=== PATIENT | male | born 1995 | race Caucasian/White ===

== ENCOUNTER 2022-12-21 07:32 | Emergency (ER) | payer SELFPAY ==
[2022-12-21 07:40] VITALS: BP 110/85; PULSE 75; RESP 18; TEMP 36.8; O2SAT 97; BMI 33.4
--- NOTE | 2022-12-21 07:49 | PC.NURSE ---
PT. C/O ITCHY BUMPY SKIN TO BUE, BLE, AND TORSO S/P CAMPING TRIP. PT STATES BUMPS ARE NOT PAINFUL.. PT STATES SLEPT IN A CABIN BUT DID SWIM IN A POND
--- NOTE | 2022-12-21 07:57 | ED.SKABFB1 ---
HPI - Skin/Abscess/Foreign Bdy General Chief complaint: Skin/Abscess/Foreign Body Stated complaint: bug bites all over Time Seen by Provider: 12/21/22 07:57 Source: patient Mode of arrival: walk-in Limitations: no limitations History of Present Illness HPI narrative: Patient presents to the emergency department complaining of rash. Patient states he went camping south [facility] last week and he developed bunch of bumps to his leg, abdomen, and arms. Patient states these are itchy. He has been using calamine lotion. He denies any fever, chills, sore throat, cough, chest, shortness of breath. Denies any constitutional symptoms. Related to the dorsal [place] and was told this was a viral infection. The patient has been using the calamine lotion. She has not taking any antipruritic medication. He denies developing any more lesions but they haven't gone away. He states that he tried a very hot bath and that made it worse. Related Data Previous Rx's Medication Instructions Recorded diphenhydramine HCl 25 mg capsule 25 mg PO Q8H PRN itching #20 caps 12/21/22 (Benadryl) Allergies Allergy/AdvReac Type Severity Reaction Status Date / Time codeine Allergy Intermediate fast heart Verified 12/21/22 07:39 rate Review of Systems ROS Status of ROS 10 or more systems reviewed and unremarkable except as noted in history and below Exam Narrative Exam Narrative: Nurses notes and vital signs reviewed and patient is not hypoxic. General: Nontoxic, Well-appearing and in no apparent distress. Skin: Warm, dry, no pallor noted. Diffuse papular rashes to the lower extremities below the knees and in the abdomen worse on the right side and chest and in the forearms with closing is not present. There is no signs of bacterial infection. These are consistent with insect bites. Head: Normocephalic, atraumatic. Neck: Supple, non-tender. Eye: Pupils are equal, round and EOMI. No scleral icterus. Ears, Nose, Mouth, and Throat: TM clear, no posterior oropharynx erythema or nasal mucosal hypertrophy, uvula is mid-line Oral mucosa is moist Cardiovascular: Regular Rate and Rhythm without murmur, gallop or rub. Respiratory: No accessory muscle use or respiratory distress. Lungs are clear to auscultation, no wheezing, rales or rhonchi Chest Wall: no tenderness Back: No midline thoracic or lumbar vertebral tenderness. No CVA tenderness Musculoskeletal: normal ROM, no calf or popliteal tenderness, no lower extremity edema/swelling GI: Abdomen is soft, non-distended. Normal bowel sounds. No masses appreciated. No tenderness to palpation. No rebound, guarding, or rigidity noted. Neurological: A&O x4. No cranial nerve dysfunction observed. No truncal ataxia. Moves all extremities. Sensation intact. Psychiatric: Cooperative and interactive. Normal mood and affect. Constitutional Vital Signs - 24 hr 12/21/22 07:40 Temperature 98.2 F Pulse Rate [Monitor] 75 Respiratory Rate 18 Blood Pressure [Left Arm] 110/85 H Pulse Oximetry 97 Oxygen Delivery Method Room Air Course Vital Signs Vital signs: Vital Signs Temperature 98.2 F 12/21/22 07:40 Pulse Rate 75 12/21/22 07:40 Respiratory Rate 18 12/21/22 07:40 Blood Pressure 110/85 H 12/21/22 07:40 Pulse Oximetry 97 12/21/22 07:40 Oxygen Delivery Method Room Air 12/21/22 07:40 Temperature 98.2 F 12/21/22 07:40 Pulse Rate 75 12/21/22 07:40 Respiratory Rate 18 12/21/22 07:40 Blood Pressure 110/85 H 12/21/22 07:40 Pulse Oximetry 97 12/21/22 07:40 Oxygen Delivery Method Room Air 12/21/22 07:40 MDM - Skin/Abscess/Foreign Bdy MDM Narrative Medical decision making narrative: History of physical consistent with insect bites. Discussed the patient to take Benadryl continue to use calamine lotion if it helps. He is nontoxic, nontoxic and stable for outpatient follow-up and treatment. At this time the patient is without objective evidence of an acute process requiring hospitalization or inpatient management. No additional indication for emergent studies at this time. I answered all questions. Discussed discharge instructions including standard anticipatory guidance and what should prompt a return to the emergency department, including if they get worse are not getting better or develops any new or concerning symptoms. I've given them specific time frame in which to follow-up, and who to follow-up with. The patient demonstrates understanding. Patient is nontoxic and stable for discharge with outpatient follow-up. This note was created with the assistance of a speech recognition program. Although the intention is to generate documents that actually reflects the content of the visit, no guarantees can be provided that every mistake has been identified and corrected by editing. Differential Diagnosis Differential diagnosis: Likely abscess of skin or subcutaneous tissue, viral exanthem, dermatophytosis, herpes zoster, cellulitis, eczema, insect bites, impetigo and contact dermatitis Discharge Plan Discharge Chief Complaint: Skin/Abscess/Foreign Body Clinical Impression: Insect bite Patient Disposition: Home, Self-Care Time of Disposition Decision: 08:05 Condition: Good Mode of Transportation: Private Vehicle Prescriptions / Home Meds: New diphenhydramine HCl [Benadryl] 25 mg capsule 25 mg PO Q8H PRN (Reason: itching) Qty: 20 0RF Instructions: Insect Bite or Sting (ED) Stand Alone Forms: Portal Instructions Referrals: Physician,Non-Staff, MD [Primary Care Provider] - 1 week
== END 2022-12-21 08:16 | disposition home or self-care (01) ==
PROVIDERS: Emergency Provider Emergency Medicine
DX: S80.862A Insect bite (nonvenomous), left lower leg, initial encounter (principal); S80.861A Insect bite (nonvenomous), right lower leg, initial encounter; S50.862A Insect bite (nonvenomous) of left forearm, initial encounter; S50.861A Insect bite (nonvenomous) of right forearm, initial encounter; S20.363A Insect bite (nonvenomous) of bilateral front wall of thorax, initial encounter; S30.861A Insect bite (nonvenomous) of abdominal wall, initial encounter; W57.XXXA Bitten or stung by nonvenomous insect and other nonvenomous arthropods, initial encounter
CPT/HCPCS: 99281

== ENCOUNTER 2025-06-28 19:09 | Emergency (ER) | payer BC, SELFPAY ==
--- OUTSIDE RECORDS SUMMARY | 2025-06-28 18:18 | XMS_ITS | Encounter Summary ---
Author Organization [facility] [employer] [facility] tem Address [facility] [id number] [address] [place] [address] Care Team Providers Care Funeral Director And Embalmer Name Role Phone No Pcp, No Pcp Primary Care Provider Unavailabl e Reason for Visit * ReasonCommentsCold Like SymptomsPt states cold like symptoms that began when he woke up this morning. Denies N/V/D. C/o headache, fatigue, congestion. Encounter Details DateTypeDepartmentCare Team (Latest Contact Info)Ljakglzheyt91/17/2025 6:18 PM EST - 06/28/2025 7:32 PM [facility] - Emergency [address] [place] [id number] Discharge Disposition: Left Without Treatment Social History Tobacco UseTypesPacks/DayYears UsedDateSmoking Tobacco: NeverSmokeless Tobacco: NeverAlcohol UseStandard Drinks/WeekCommentsNo0 (1 standard drink = 0.6 oz pure alcohol)ChildcareAnswerDate KhytzubeUvmnkppaqYtoahne16/10/2019EmploymentAnswer Date WygkdeoiAviaknarqtLmqbtbo01/10/2019Hunger ScreeningAnswerDate Recorded Within the past 12 months we worried whether our food would run out before we got money to buy more.Never True06/28/2025Within the past 12 months the food we bought just didn't last and we didn't have money to get more.Never True 06/28/2025Purpose - LifeAnswerDate RecordedPurpose and direction in lifeUnknown 08/22/2020ex and Gender InformationValueDate RecordedSex Assigned at BirthNot on fileLegal OurPots8602/13/2015 2:55 PM EDTGender IdentityNot on fileSexual OrientationNot on filedocumented as of this encounter Last Filed Vital Signs Vital SignReadingTime TakenCommentsBlood Pkpqdgln806/8306/28/2025 6:34 PM EST Cewtj384006/28/2025 6:34 PM KTNLyiobtyjuax62.9 ??C (98.4 ??F)06/28/2025 6:34 PM ESTRespiratory Tbck735708/29/2024 6:34 PM ESTOxygen Ztdgpptbyn21%06/28/2025 6:34 PM ESTInhaled Oxygen Concentration--Kjuvzq033 kg (236 lb)06/28/2025 6:34 PM EST Nkzftc853.1 cm (5' 5 )06/28/2025 6:34 PM ESTBody Mass Index39.27108/29/2024 6:34 PM ESTdocumented in this encounter Functional Status * ED Hunger ScreeningQuestionAnswerDate of AssessmentAuthorWithin the past 12 months the food we bought just didn't last and we didn't have money to get more.Never True06/28/2025 6:36 PM Benny Schuster Jr., RNWithin the past 12 months we worried whether our food would run out before we got money to buy more.Never True06/28/2025 6:36 PM Benny Schuster Jr., RN * BEE (kcal)AnswerDate of OtbziljuceDyfdzo997190/17/2025 6:34 PM Benny Schuster Jr., RN * Pain AssessmentQuestionAnswerDate of AssessmentAuthorPain AssessmentNo/denies pain06/28/2025 6:34 PM Benny Schuster Jr., RN * [place] Coma ScaleQuestionAnswerDate of AssessmentAuthorEye Uhbtksi847/17/2025 6:35 PM Benny Schuster Jr. RNBest Motor Igtpqbzv615/17/2025 6:35 PM EST Benny Camara Jr., RNBest Verbal Eixxtrbi442/17/2025 6:35 PM Benny Schuster Jr., RNGlasgow Coma Scale Ocbcr7843/17/2025 6:35 PM Benny Schuster Jr., RN * Patient ObservationQuestionAnswerDate of BhwdkjifrcAncruuTnqcgq2163/17/2025 6:34 PM Bneny Schuster Jr., RNWeight377612 6:34 PM Benny Schuster Jr., RN * BSA (Calculated - sq m)AnswerDate of AssessmentAuthor2.22108/29/2024 6:34 PM Benny Schuster Jr., RN * BMI (Calculated)AnswerDate of HzxxhqohaaNoqzqs16.312 6:34 PM Benny Beebe Jr., RN * Height and WeightQuestionAnswerDate of AssessmentAutCincinnati Shriners Hospitalt MethodStated 06/28/2025 6:34 PM Benny Schuster Jr., RN * Abuse Indicator ScreeningQuestionAnswerDate of AssessmentAuthorSafe in [facility] 06/28/2025 6:36 PM Benny Schuster Jr., RNDo you feel safe in your relationship(s)?Yes06/28/2025 6:36 PM Benny Schuster Jr. RNAre you in immediate danger?No06/28/2025 6:36 PM Benny Schuster Jr., RN * Harm Risk AssessmentQuestionAnswerDate of AssessmentAuthorAre you having thoughts of homicide or causing harm to others?No06/28/2025 6:35 PM Benny Schuster Jr., RN * Blood HistoryQuestionAnswerDate of AssessmentAuthorHave you had a blood transfusion?No06/28/2025 6:36 PM Benny Schuster Jr., RNWould you accept a blood transfusion in a life-threatening situation?Yes06/28/2025 6:36 PM Benny Beebe Jr., RN * Vital SignsQuestionAnswerDate of EhrizupsycOuykmbIP269/8312 6:34 PM Benny Schuster Jr. LFYfjq99.412 6:34 PM Benny Schuster Jr., RNTemp uepOcul0606/28/2025 6:34 PM Benny Schuster Jr., FGQrtgq6192/17/2025 6:34 PM Benny Schuster Jr., OLOyql0259/17/2025 6:34 PM Benny Schuster Jr., JUNsR07278/17/2025 6:34 PM Benny Schuster Jr., RNBP LocationLeft arm 06/28/2025 6:34 PM Benny Schuster Jr., RNBP BjnnncZutwdushi89/17/2025 6:34 PM Benny Schuster Jr., RNPatient QgsqoxzgYarjhea44/17/2025 6:34 PM Benny Beebe Jr., WINNIE * Oxygen TherapyQuestionAnswerDate of AssessmentAuthorO2 DeviceNone (Room air) 06/28/2025 6:34 PM Benny Schuster Jr., RN * AirwayQuestionAnswerDate of AssessmentAuthorAirway (WDL)WDL108/29/2024 6:35 PM Benny Schuster Jr. RN * BreathingQuestionAnswerDate of AssessmentAuthorBreathing (WDL)WD08/29/2024 6:35 PM Benny Schuster Jr., RN * CirculationQuestionAnswerDate of AssessmentAuthorCirculation (WDL)WDL 06/28/2025 6:35 PM Benny Schuster Jr., RN * DisabilityQuestionAnswerDate of AssessmentAuthorDisability (WDL)WDL108/29/2024 6:35 PM Benny Schuster Jr., RN * Weight in (lb) to have BMI = 25AnswerDate of VdpzbnioblHjrfiu776.9108/29/2024 6:34 PM Benny Schuster Jr., RN * [place] Suicide BehaviorQuestionAnswerDate of AssessmentAuthor6. Have you ever done anything, started to do anything, or prepared to do anything to end your life?No06/28/2025 6:35 PM Benny Schuster Jr., RN * Suicidal Ideation (Last Month)QuestionAnswerDate of AssessmentAuthor1. In the last month have you wished you were or wished you could go to sleep and not wake up?No06/28/2025 6:35 PM Benny Schuster Jr., RN2. In the last month have you actually had any thoughts of killing yourself?No06/28/2025 6:35 PM Benny Schuster Jr., RNAble to assess?Yes06/28/2025 6:35 PM Benny Schuster Jr., RN * Vitals TimerQuestionAnswerDate of AssessmentAuthorRestwalkersville Vitals TimerYes 06/28/2025 6:34 PM Benny Schuster Jr., RN * TB ScreeningQuestionAnswerDate of AssessmentAuthorPatient has prolonged cough? No06/28/2025 6:36 PM Benny Schuster Jr. RNPatient has bloody cough?No 06/28/2025 6:36 PM Benny Schuster Jr. RNPatient has fever?No06/28/2025 6:36 PM Benny Schuster Jr., RNPatient has night sweats?No06/28/2025 6:36 PM Benny Schuster Jr., RNPatient has weight loss?No06/28/2025 6:36 PM Benny Beebe Jr. RNPatient has positive PPD?Kzifraz2506/28/2025 6:36 PM Benny Beebe Jr., RN * [place] Suicide Risk LevelAnswerDate of AssessmentAuthorNot at Suicide Risk 06/28/2025 6:35 PM Benny Schuster Jr., RN * BEE (kcal)AnswerDate of KvbmzrgsrlYhxvpd906974/17/2025 6:34 PM Benny Schuster Jr., RN * Patient ObservationQuestionAnswerDate of OnmyowigxmDyfsatHbpvbh4996/17/2025 6:34 PM Benny Schuster Jr., RNWeight377606/28/2025 6:34 PM Benny Schuster Jr., RN * BSA (Calculated - sq m)AnswerDate of AssessmentAuthor2.22108/29/2024 6:34 PM Benny Schuster Jr., RN * BMI (Calculated)AnswerDate of RsxehnhsnlNdvcgs32.312 6:34 PM Benny Beebe Jr., RN * Height and WeightQuestionAnswerDate of AssessmentAuthorHeight MethodStated 06/28/2025 6:34 PM Benny Schuster Jr. RN * Vital SignsQuestionAnswerDate of VuxbbvkbptFmplwwGW322/8306/28/2025 6:34 PM Benny Scuhster Jr., YPOkyk87.412 6:34 PM Benny Schuster Jr., RNTemp hwjBcqb4206/28/2025 6:34 PM Benny Schuster Jr., SRKrpfr1553/17/2025 6:34 PM Benny Schuster Jr., JKVpmz9187/17/2025 6:34 PM Benny Schuster Jr., XPYkO08422/17/2025 6:34 PM Benny Schuster Jr., RNBP LocationLeft arm 06/28/2025 6:34 PM Benny Schuster Jr., RNBP RxrfelYbisqoxgx96/17/2025 6:34 PM Benny Schuster Jr., RNPatient YlfnpzfrKaavrsj60/17/2025 6:34 PM Benny Beebe Jr., RN * Weight in (lb) to have BMI = 25AnswerDate of MrrirdzeqoJhzhds838.9108/29/2024 6:34 PM Benny Schuster Jr. RN documented as of this encounter Mental Status * Pain AssessmentQuestionAnswerEntry DateAuthorPain AssessmentNo/denies pain 06/28/2025 6:34 PM Benny Schuster Jr., RN * [place] Coma ScaleQuestionAnswerEntry DateAuthorEye Cyoedlt013/17/2025 6:35 PM Benny Schuster Jr., RNBest Motor Gnjzgbuc402/17/2025 6:35 PM ESTLowery, Benny Jr., RNBest Verbal Emdwmmkq118/17/2025 6:35 PM Benny Schuster Jr., RNGlasgow Coma Scale Kkhtp9923/17/2025 6:35 PM Benny Schuster Jr., RN * Vital SignsQuestionAnswerEntry UbfyDmcysfGU272/8306/28/2025 6:34 PM Benny Schuster Jr., TRNwum57.412 6:34 PM ESTBenny Camara Jr., RNTemp src Oral06/28/2025 6:34 PM ESTBenny Camara Jr., TVWwejo8593/17/2025 6:34 PM Benny Beebe Jr., ODHeva0853/17/2025 6:34 PM ESTBenny Camara Jr., RNSpO2 9406/28/2025 6:34 PM ESTBenny Camara Jr., RNBP LocationLeft arm06/28/2025 6:34 PM Benny Schuster Jr., RNBP PdwlraJgzeaeaig57/17/2025 6:34 PM Benny Beebe Jr., RNPatient VifkemfxHiesdcd75/17/2025 6:34 PM Benny Schuster Jr., RN * Oxygen TherapyQuestionAnswerEntry DateAuthorO2 DeviceNone (Room air)06/28/2025 6:34 PM Benny Schuster Jr., RN documented in this encounter Medications at Time of Discharge MedicationSigDispense QuantityRefillsLast FilledStart DateEnd Date amLODIPine (NORVASC) 5 mg tablet Take 1 tablet (5 mg total) by mouth before bedtime for 180 days. 90 tablet 503/ levocetirizine (XYZAL) 5 mg tablet Take 1 tablet (5 mg total) by mouth nightly as needed for allergies. 30 tablet 12/17/2022 methylPREDNISolone (MEDROL, SHAHBAZ,) 4 mg tablet follow package directions 21 tablet 3documented as of this encounter Plan of Treatment NameTypePriorityAssociated DiagnosesOrder ScheduleSARS/FLU A+B/RSV by NAAT/Molecular (M4RT Collection Tube)MicrobiologySTATSTAT for 1 Occurrences starting 06/28/2025 until 06/28/2025documented as of this encounter Visit Diagnoses Not on filedocumented in this encounter Additional Health Concerns InfectionOnset DateLast IndicatedResolved TimeRespiratory Rule-Out06/28/2025 06/28/2025documented as of this encounter Care Teams Team MemberRelationshipSpecialtyStart DateEnd Date No Pcp, [place] [id number] [facility]CP [facility] Jbrpisqd49/22/23documented as of this encounter
[2025-06-28 19:27] VITALS: BP 138/91; PULSE 95; TEMP 36.9; O2SAT 96; BMI 39.3
--- NOTE | 2025-06-28 20:11 | ED_ITS ---
HPI - URI/Sore Throat General Chief Complaint: Upper Respiratory Infection Stated Complaint: Flu-like symptoms Time Seen by Provider: 06/28/25 20:06 Source: patient History of Present Illness HPI Narrative: This 30-year-old male with no significant medical history besides a heart murmur presents for evaluation of sore throat, runny nose, headache and bodyaches that started last night. He has been using cough drops but otherwise has not taken any medications. He is not having any chest pain or shortness of breath. He denies any abdominal pain nausea vomiting or diarrhea. He denies any sick contacts. Related Data Previous Rx's ?Medication ?Instructions ?Recorded diphenhydramine HCl 25 mg capsule 25 mg PO Q8H PRN itc nita #20 caps 12/21/22 (Benadryl) Allergies Allergy/AdvReac Type Severity Reaction Status Date / Time codeine Allergy Intermediate fast heart Verified 12/21/22 07:39 rate Review of Systems ROS Status of ROS 10 or more systems reviewed and unremark able except as noted in history and below PFSH PFSH Social History Little interest or pleasure in doing things: not at all Feeling down, depressed, or hopeless: not at all Exam Narrative Exam Narrative: Vital signs and Nursing Notes reviewed: Patient is afebrile with a normal pulse, normal blood pressure, he is not hypoxic with pulse ox of 96% on room air General: Awake, alert, oriented, no acute distress, lying comfortably on the stretcher HEENT: Normocephalic atraumatic, mucous membranes are moist and pink, eyes are clear, normal conjunctiva, vision is grossly intact Neck: Supple, no meningeal signs, no anterior or posterior cervical lymphadenopathy Chest: Lungs are clear to auscultation with good air entry, there is no wheezing rhonchi or rales appreciated no accessory muscle use, patient is speaking in complete sentences-no chest wall tenderness to palpation CVS: Regular rate and rhythm S1-S2, grade 4-6 systolic ejection murmur with no rubs or gallops, pulses are brisk and equal bilaterally ABD: Soft, nondistended, nontender, no rebound guarding or rigidity, bowel sounds are normal, no pulsatile masses appreciated Extremities: Moving all extremities, no lower extremity tenderness or swelling noted, negative Homans' sign, pulses are brisk and equal bilaterally Skin: Normal in appearance without rash,pallor, petechiae or purpura Neuro: No focal deficits Constitutional Vital Signs, click to edit/add: Last Vital Signs Temp 98.5 F 06/28/25 19:27 Pulse 95 H 06/28/25 19:27 Resp 18 06/28/25 19:27 BP 138/91 06/28/25 19:27 Pulse Ox 96 06/28/25 19:27 O2 Del Method Room Air 06/28/25 19:27 Course Vital Signs Vital signs: Vital Signs Temperature 98.5 F 06/28/25 19:27 Pulse Rate 95 H 06/28/25 19:27 Respiratory Rate 18 06/28/25 19:27 Blood Pressure 138/91 06/28/25 19:27 Pulse Oximetry 96 06/28/25 19:27 Oxygen Delivery Method Room Air 06/28/25 19:27 Temperature 98.5 F 06/28/25 19:27 Pulse Rate 95 H 06/28/25 19:27 Respiratory Rate 18 06/28/25 19:27 Blood Pressure 138/91 06/28/25 19:27 Pulse Oximetry 96 06/28/25 19:27 Oxygen Delivery Method Room Air 06/28/25 19:27 MDM - URI/Sore Throat MDM Narrative Medical decision making narrative: This 70-year-old male presents for evaluation of 24 hours of a sore throat, nasal congestion, dry cough and bodyaches as well as chills. His physical exam is benign with the exception of a heart murmur which he was aware that he had. Vital signs are stable. He had only been taking cough drops for his symptoms. He was medicated emergency department with Tylenol and ibuprofen. He is negative for COVID-19 and influenza. A strep test was attempted but he bit the swab in half and it was not reattempted. He is hemodynamically stable for discharge. He was discharged home with a prescription for ibuprofen and a note for work for the next 2 days. He was encouraged to drink plenty of fluids, isolate as he may have COVID-19 despite the negative test and follow-up closely with his family physician. Lab Data Attestation: I reviewed the patient's lab results. Labs: Lab Results 06/28/25 Range/Units 19:33 Influenza Type A Ag Negative Influenza Type B Ag Negative SARS-CoV-2 Ag (CV2AG) Negative (NEGATIVE) Discharge Plan Discharge Chief Complaint: Upper Respiratory Infection Clinical Impression: Upper respiratory infection, viral Patient Disposition: Home, Self-Care Time of Disposition Decision: 20:24 Condition: Good Prescriptions / Home Meds: No Action diphenhydramine HCl [Benadryl] 25 mg capsule 25 mg PO Q8H PRN (Reason: itching) Qty: 20 0RF Print Language: Malagasy Instructions: Upper Respiratory Infection (ED) Referrals: Physician,Non-Staff, MD [Primary Care Provider] - 1 week
[2025-06-28 20:13] LABS: SARS-CoV-2 Ag NEGATIVE (NEGATIVE)
[2025-06-28] MEDS: IBUPROFEN 600 MG TABLET PO (20:25)
[2025-06-28] MEDS: ACETAMINOPHEN 325 MG TABLET 650 MG PO (20:25)
--- OUTSIDE RECORDS SUMMARY | 2025-06-28 20:27 | XMS_ITS | Encounter Summary ---
Author Organization [employer] s tem Address [facility] [id number] [address] [place] [address] Care Team Providers Care Timber Surveyor Name Role Phone No Pcp, No Pcp Primary Care Provider Unavailabl e Encounter Details DateTypeDepartmentCare Team (Latest Contact Info)Ozhxucvihng09/17/2025Travel Social History Tobacco UseTypesPacks/DayYears UsedDateSmoking Tobacco: NeverSmokeless Tobacco: NeverAlcohol UseStandard Drinks/WeekCommentsNo0 (1 standard drink = 0.6 oz pure alcohol)ChildcareAnswerDate LzbqjdrcKcxjbkdznReiajxq53/10/2019EmploymentAnswer Date ExuqxicpLoxoerwfezIjbjwjv74/10/2019Hunger ScreeningAnswerDate Recorded Within the past 12 months we worried whether our food would run out before we got money to buy more.Never True06/28/2025Within the past 12 months the food we bought just didn't last and we didn't have money to get more.Never True 06/28/2025Purpose - LifeAnswerDate RecordedPurpose and direction in lifeUnknown 08/22/2020ex and Gender InformationValueDate RecordedSex Assigned at BirthNot on fileLegal TytEhvp0802/13/2015 2:55 PM EDTGender IdentityNot on fileSexual OrientationNot on filedocumented as of this encounter Plan of Treatment Not on file documented as of this encounter Visit Diagnoses Not on filedocumented in this encounter Additional Health Concerns InfectionOnset DateLast IndicatedResolved TimeRespiratory Rule-Out06/28/2025 5documented as of this encounter Care Teams Team MemberRelationshipSpecialtyStart DateEnd Date No Pcp, [place] [id number] PCP - GeneralFanhly Gpdpvbmg98/22/23documented as of this encounter
--- OUTSIDE RECORDS SUMMARY | 2025-06-28 20:28 | XMS_ITS | Encounter Summary ---
Author Organization [employer] Sys tem Address [id number] [address] [place] [address] Care Team Providers Care Direct Service Worker Name Role Phone No Pcp, No Pcp Primary Care Provider Unavailabl e Encounter Details DateTypeDepartmentCare Team (Latest Contact Info)Ufnyyfxrrdl77/05/2025Telephone [facility] [address] [facility] [address] [place] [address] [phone] Dayanna Meyer RN Social History Tobacco UseTypesPacks/DayYears UsedDateSmoking Tobacco: NeverSmokeless Tobacco: NeverAlcohol UseStandard Drinks/WeekCommentsNo0 (1 standard drink = 0.6 oz pure alcohol)ChildcareAnswerDate ZilinmgiGcvefliagIgsuett46/10/2019EmploymentAnswer Date ZxuydksiZozavxpxmdZijjrwl75/10/2019Hunger ScreeningAnswerDate Recorded Within the past 12 months we worried whether our food would run out before we got money to buy more.Never True07/03/2023Within the past 12 months the food we bought just didn't last and we didn't have money to get more.Never True 3Purpose - LifeAnswerDate RecordedPurpose and direction in lifeUnknown 1Sex and Gender InformationValueDate RecordedSex Assigned at BirthNot on fileLegal VfwJvcr9002/13/2015 2:55 PM EDTGender IdentityNot on fileSexual OrientationNot on filedocumented as of this encounter Miscellaneous Notes * Telephone Encounter - Dayanna Meyer RN - 06/16/2025 1:33 PM EST Images from the original note were not included. Attempted to call patient and patient's twice to relay message below. Awaiting call back at this time. Rosalba Rivera MD [facility] Clinical Staff I called a few times to discuss her 's MRI results because of the concern that he might needsurgery but there was an answer and then the phone got disconnected. Please let her know that at this time I am working on getting all of his MRIs transferred to our system for further review and discussions. In the interim I would like her and her to consider where they would like to have surgery whether at [facility] at [facility]. I am leaning more towards [facility] out Clinic since he is now an adult Congenital patient we can certainly discuss this further when I get back from vacation. * Telephone Encounter - Dayanna Meyer RN - 06/16/2025 1:33 PM EST Spoke with Chano's . She would like more details regarding upcoming surgery. [facility] would [facility] to [facility]. Please advise. * Telephone Encounter - Rosalba Rivera MD - 06/16/2025 1:33 PM EST Noted. Imaging has been sent and they will be reviewing presenting him at the conference. * Telephone Encounter - Dayanna Meyer RN - 06/16/2025 1:33 PM EST Chano is inquiring if this is open heart surgery vs cath and what surgery plans to expect? Patient wondering if surgery is in regards to his valve? Patient and family needs to plan for work, income, and coverage for children. Please advise. * Telephone Encounter - Rosalba Rivera MD - 06/16/2025 1:33 PM EST I called twice to day unfortunately had to leave a message. This will be open heart surgery. They will be replacing the conduit which the last time he has a conduit placed was I think age 75 years old. It is time for it to be replaced. My understanding and correct me for my wrong is that he had his 1st surgery at [facility] so we can certainly do it at [facility] and unless [facility] is closer to them. Since he did have the MRIs there I have asks [facility] to look at his images. I have also sent the MRI to [facility]. This will be an open heart surgery Cardiothoracic surgery. I feel that his do not have would probably be about 1-2 weeks. He will be in hospital for probably a week in total. I have not yet heard from either teams with respect to then presenting it is a surgical team. At [facility] the surgeon will be and at [facility] the surgeon will be Dr. Fisher Please let her know that either is completely fine it really is dependent upon them. And I think he had his 1st done surgery done at [facility] with Dr. Fisher . * Telephone Encounter - Dayanna Meyer RN - 06/16/2025 1:33 PM EST Spoke with patient's and relayed message above. Her and Chano will discuss which location is best for them after hearing back from both surgical teams and the suggested surgery plans. They are very anxious about the surgery and Chano having to miss work. documented in this encounter Plan of Treatment Not on file documented as of this encounter Visit Diagnoses Not on filedocumented in this encounter Additional Health Concerns InfectionOnset DateLast IndicatedResolved TimeRespiratory Rule-Out06/28/2025 06/28/2025documented as of this encounter Care Teams Team MemberRelationshipSpecialtyStart DateEnd Date No Pcp, [place] [address] PCP - GeneralFanjly Ffrwhvhd24/22/23documented as of this encounter
--- OUTSIDE RECORDS SUMMARY | 2025-06-28 20:28 | XMS_ITS | Clinical Summary ---
Author Organization [employer] Sys tem Address [id number] [address] [place] [address] Care Team Providers Care Ed Case Manager Name Role Phone No Pcp, No Pcp Primary Care Provider Unavailabl e Allergies Active AllergyReactionsCriticalityNoted KbexQiwzvnseWienxos41/14/2017 Medications MedicationSigDispense QuantityRefillsLast FilledStart DateEnd DateStatus methylPREDNISolone (MEDROL, SHAHBAZ,) 4 mg tablet follow package directions 21 tablet 12/17/2022ctive Additional Information Patient not taking.Reported on 07/03/2023 levocetirizine (XYZAL) 5 mg tablet Take 1 tablet (5 mg total) by mouth nightly as needed for allergies. 30 tablet 12/17/2022ctive Additional Information Patient not taking.Reported on 07/03/2023 amLODIPine (NORVASC) 5 mg tablet Take 1 tablet (5 mg total) by mouth before bedtime for 180 days. 90 tablet ctive Encounters DateTypeDepartmentCare PybjRqtcpznujai02/17/2025 6:18 PM EST - 06/28/2025 7:32 PM ESTEmergenkofi [facility] [address] [place] [address] Discharge Disposition: Left Without Mfcwaitrw87/17/5411Emlfhg88/05/2025Telephone [facility] [address] [place] [address] [phone] Dayanna Meyer RN 05/17/2025Telephone [facility] [address] [place] [address] Dayanna Meyer RN 04/19/2025 1:20 PM EDTAncillary Procedure [facility] [address] [place] [address] Pain03/30/2025 8:00 AM EDTAncillary Procedure [facility] [address] [place] [address] H/O truncus arteriosus repair; Palpitations; Chest pain, unspecified type03/30/2025Telephone [facility] [address] [place] [address] Dayanna Meyer RN 03/29/2025Orders Only [facility] [address] [place] [address] Rosalba Rivera MD H/O truncus arteriosus repair (Primary Dx); Palpitations; Chest pain, unspecified typefrom Last 3 Months Social History Tobacco UseTypesPacks/DayYears UsedDateSmoking Tobacco: NeverSmokeless Tobacco: NeverAlcohol UseStandard Drinks/WeekCommentsNo0 (1 standard drink = 0.6 oz pure alcohol)ChildcareAnswerDate MclonbzcGbqmiiifgYzodgff83/10/2019EmploymentAnswer Date CipcxpsyGnwezttyebEimqyem32/10/2019Hunger ScreeningAnswerDate Recorded Within the past 12 months we worried whether our food would run out before we got money to buy more.Never True06/28/2025Within the past 12 months the food we bought just didn't last and we didn't have money to get more.Never True 06/28/2025Purpose - LifeAnswerDate RecordedPurpose and direction in lifeUnknown 08/22/2020ex and Gender InformationValueDate RecordedSex Assigned at BirthNot on fileLegal XkdRzdl1202/13/2015 2:55 PM EDTGender IdentityNot on fileSexual OrientationNot on file Last Filed Vital Signs Vital SignReadingTime TakenCommentsBlood Ouyyygpa790/8306/28/2025 6:34 PM EST Khtes120906/28/2025 6:34 PM BCXMktdgpxawwk11.9 ??C (98.4 ??F)06/28/2025 6:34 PM ESTRespiratory Xfzj104208/29/2024 6:34 PM ESTOxygen Dzhssoylkp87%06/28/2025 6:34 PM ESTInhaled Oxygen Concentration--Vfveku204 kg (236 lb)06/28/2025 6:34 PM EST Eeyxzv227.1 cm (5' 5 )06/28/2025 6:34 PM ESTBody Mass Index39.27108/29/2024 6:34 PM EST Plan of Treatment Health MaintenanceDue DateLast DoneCommentsDepression Dieedecgd02/08/2005 DTaP,Tdap and Td Vaccines (1 - Tdap)2012dult BMI Dwoikjjdt71/22/2024 06/28/2025Tobacco Obsthqnpt54Influenza Rcderwh7603/13/2025 Medical Devices Not on file Procedures Procedure NamePriorityDate/TimeAssociated DiagnosisCommentsMR CARDIAC FOR MORPH WO XDHHNcmudkb02/08/2025 1:20 PM EDT Pain WIRELESS TELEMETRY (IN OFFICE)Ksntioh4103/29/2025 4:18 PM EDT H/O truncus arteriosus repair Palpitations Chest pain, unspecified type from Last 3 Months Results * MR cardiac for morphology without contrast (04/19/2025 1:20 PM EDT)Specimen (Source)Anatomical Location / LateralityCollection Method / VolumeCollection TimeReceived Time Narrative Authorizing ProviderResult TypeResult StatusScanning Provider ExternalIMG MRI ORDERABLESFinal Result * Wireless Telemetry (In Office) (03/29/2025 4:18 PM EDT)Anatomical Region LateralityModalityOtherSpecimen (Source)Anatomical Location / Laterality Collection Method / VolumeCollection TimeReceived Time Narrative 05/15/2025 5:17 PM EST Unremarkable 30 day event monitor tracing report; only 7 days received. ?Negative for arrhythmia FINDINGS: The patient had predominantly sinus rhythm with normal atrioventricular conduction Heart rate varied from 56 bpm to 120 bpm. ??The patient???s average heart rate was 71 bpm. ?? The patient had acceptable sinus bradycardia in racing board marker while asleep The patient had no ventricular ectopic activity. ?? The patient had ??no supraventricular ectopy. ?? No pauses greater than 3 seconds No arrhythmia was noted. Patient triggered event for chest pain correlated with normal sinus rhythm CONCLUSION: ??Unremarkable 30 day event monitor tracing report Authorizing ProviderResult TypeResult StatusClaudpilo Rad Lang Miguel [facility] ORDERABLESFinal Result from Last 3 Months Additional Health Concerns InfectionOnset DateLast IndicatedRespiratory Rule-Out Insurance Care Teams Team MemberRelationshipSpecialtyStart DateEnd Date No Pcp, [place] [address] [facility] - [facility] Rtiyfjon52/22/23
--- OUTSIDE RECORDS SUMMARY | 2025-06-28 20:28 | XMS_ITS | Clinical Summary ---
Author Organization [facility] Address [address] [place] [address] Care Team Providers Care Wound Nurse Name Role Phone Manoj Lynn Primary Care Provider [phone] Allergies Active AllergyReactionsCriticalityNoted PrzzMihtvolzLofirwdNpvwwvarent51/08/2025 Medications No known medications Encounters DateTypeDepartmentCare JbkiUxefwmptzkk48/08/2025 11:40 AM EDT - 04/19/2025 11:59 PM EDTHospital Encounter [facility] [place] [address] [place] [id number] H/O truncus arteriosus repair Discharge Disposition: Home04/19/2025Travelfrom Last 3 Months Social History Tobacco UseTypesPacks/DayYears UsedDateSmoking Tobacco: Never AssessedSex and Gender InformationValueDate RecordedSex Assigned at BirthNot on fileLegal Sex Male05/27/2017 1:59 PM ESTGender IdentityNot on fileSexual OrientationNot on file Last Filed Vital Signs Vital SignReadingTime TakenCommentsBlood Qvqtxbch332/7110 2:11 PM EDT Agluv617304/19/2025 2:11 PM EDTTemperature--Respiratory Rate--Oxygen Zbkgkajzre09% 04/19/2025 2:11 PM EDTInhaled Oxygen Concentration--Ieleqc184.8 kg (233 lb 5.7 oz)04/19/2025 12:36 PM QCWGqroks980.7 cm (5' 6.02 )04/19/2025 12:36 PM EDTBody Mass Index37.6404/19/2025 12:36 PM EDT Plan of Treatment Health MaintenanceDue DateLast DoneCommentsMMR Vaccine (1 of 1 - Standard series)1994DTaP/Tdap/Td Vaccine (1 - Tdap)2000Varicella Vaccine (1 of 2 - 13+ 2-dose series)2006Hepatitis B Vaccine (1 of 3 - 19+ 3-dose series)2012HPV Vaccine (1 - 3-dose SCDM series)2020COVID-19 Vaccine (1 - season)2025Influenza Vaccine (#1)2025HIB VaccineAged OutNo longer eligible based on patient's age to complete this topicHepatitis A VaccineAged OutNo longer eligible based on patient's age to complete this topic IPV VaccineAged OutNo longer eligible based on patient's age to complete this topicMeningococcal ACWY VaccineAged OutNo longer eligible based on patient's age to complete this topicMeningococcal B VaccineAged OutNo longer eligible based on patient's age to complete this topicPneumococcal VaccineAged OutNo longer eligible based on patient's age to complete this topicRSV AntibodiesAged OutNo longer eligible based on patient's age to complete this topicRotavirus Vaccine Aged OutNo longer eligible based on patient's age to complete this topic Procedures Procedure NamePriorityDate/TimeAssociated DiagnosisCommentsMR CARDIAC FOR TETRALOGY OF FALLOT ZRIKQHBtempon02/08/2025 2:40 PM EDT H/O truncus arteriosus repair from Last 3 Months Results * MR Cardiac for Tetralogy of Fallot Repair (04/19/2025 2:40 PM EDT)Anatomical RegionLateralityModalityChestN/AMagnetic ResonanceSpecimen (Source)Anatomical Location / LateralityCollection Method / VolumeCollection TimeReceived Time 04/19/2025 4:58 PM EDT Impressions 04/24/2025 12:45 AM EDT 1. Truncus arteriosus, status post repair. 2. 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 There is mild conduit regurgitation with a regurgitant fraction of 15-19%. 3. The right ventricle to pulmonary artery conduit and proximal branch pulmonary arteries are diffusely mildly small. ??There is also a mild focal narrowing in the distal left pulmonary artery. 3. The aortic root is mild to moderately dilated, the remainder of the aorta measures normal. 4. Right aortic arch with mirror image branching. 5. There is no residual ventricular septal defect. 6. Normal right ventricular chamber size with normal systolic function. 7. Normal left ventricular chamber size with low normal systolic function. This study and results reported in conjunction with Dr. Heather Vidal, attending physician from [facility] and Dr. Sherice Boyer, advanced imaging fellow from [facility]. I, Josefa Osorio MD, have supervised the procedure and/or image review, and agree with the above interpretation and report. Narrative 04/24/2025 12:45 AM EDT MR CARDIAC FOR TETRALOGY OF FALLOT REPAIR CLINICAL HISTORY: The patient is a 22-year-old Male with truncus arteriosus status post complete repair. 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 A baseline cardiac MRI study was requested performed to assess cardiac anatomy, function, and evidence of myocardial delayed enhancement. COMPARISON: ??MR Cardiac 06/22/17 TECHNIQUE: Cardiac MRI was performed in the 3 Shirlene Siemens Skyra magnet utilizing a 32-channel phased-array cardiac coil. Sequences included: ??GRE localizers, Cine SSFP in the 4-, 3-, 2- chamber and short axis planes. Velocity-encoded phase contrast was performed through the ascending aorta, SVC, descending aorta, branch pulmonary arteries, and MPA. In-plane RVOT. 132 mg Ferumoxytol was infused slowly. Respiratory-navigated, EKG-gated, IR FLASH three-dimensional sagittal MRA of the chest. 3D reformats were generated on a separate workstation under direct physician supervision. 4D flow assessment performed. ?? The patient was imaged with suspended breathing technique, yielding a technically adequate study. There is no study related complications FINDINGS: SITUS AND SEGMENTAL ANATOMY: {S,D,S} with normal segmental anatomy with situs solitus of the thoracic and abdominal viscera. There is levocardia with atrioventricular and ventriculoarterial concordance. SYSTEMIC AND PULMONARY VEINS: Normal systemic and pulmonary venous return. There is a retroaortic left innominate vein, an anatomic variant. ATRIA: The right atrium is mildly dilated with normal left atrium with no evidence of atrial shunting. AV JUNCTION: The tricuspid valve is thin and mobile with trace insufficiency. The mitral valve is thin and mobile without insufficiency. VENTRICLES: The right ventricle is normal in size with normal function. No right ventricular segmental wall motion abnormality is evident. The left ventricle is normal in size with low normal function. No left ventricular segmental wall motion abnormality is evident. The left ventricular mass is normal. There are no visible ventricular septal defects. There is diastolic septal flattening. OUTFLOW: There is no left ventricular outflow tract obstruction. The aortic valve is normal in appearance and functions normally without stenosis. There is no significant aortic regurgitation. The aortic root is mild to moderately dilated. The sinotubular junction measures normal. ??The right ventricle to pulmonary artery conduit is severely stenotic with a peak velocity of 445 cm/s and diffusely small, measuring ??16 x 15 mm. The distal conduit measures 22 x 15 mm. There is mild pulmonary regurgitation with a regurgitant fraction of 15 to 19% based off of volumetry and phase contrast imaging respectively. GREAT VESSELS: The aorta and pulmonary artery are normally related. The aortic arch is right-sided and has a mirror image branching pattern. The ascending aorta, transverse arch and descending aorta measure normally. The aorta descends to the right of the spine. The branch pulmonary arteries are diffusely mildly small bilaterally, with a discrete stenosis noted of the distal left pulmonary artery prior to the first branch. There is unbalance pulmonary blood flow with approximately 68% of the pulmonary blood flow to the right pulmonary artery and approximately 32% to the left pulmonary artery by phase contrast imaging. Aortic Root (mm): 39 x 39 x 37 previously 37 x [address] Junction (mm): 28 x 27 Ascending Aorta (mm): 27 x 24 Proximal transverse arch (mm): 25 x 24 Distal transverse arch (mm): 24 x 21 Isthmus (mm): 21 x 20 Proximal descending aorta (mm): 19 x 17 Descending aorta at diaphragm (mm): 18 x 16 Proximal conduit (mm): 16 x 15 previously 17 x 16 Distal conduit (mm): 22 x 15 previously 22 x 19 Proximal RPA (mm): 14 x 12 previously 14 x 11 Distal RPA (mm): 13 x 12 previously 14 x 13 Proximal LPA (mm): 15 x 13 previously 14 x 14 Distal LPA at level of stenosis (mm): 7 x 6 previously 8 x 7 FIBROSIS IMAGING: not performed (ferumoxytol study) MISCELLANEOUS: No other abnormal findings are identified. QUANTITATIVE VENTRICULAR VOLUME/FUNCTION DATA: Height: 168 cm. Weight: 105.8 kg. Body surface area: 2.14 msquared. Heart rate: 80 beats/min. RIGHT VENTRICLE: Ejection Fraction = 54% previously 56% End Diastolic Volume Index = 85 mL/msquared previously 86 mL/msquared End Systolic Volume Index= 39 ml/msquared previously 38 mL/msquared Stroke Volume = 98 mL previously 96mL LEFT VENTRICLE: Ejection Fraction = 54% previously 56% End Diastolic Volume Index = 73 mL/msquared previously 65 mL/msquared End Systolic Volume Index= 33 ml/msquared previously 29 mL/msquared Stroke Volume = 84 mL previously 72 mL Myocardial Mass Index = 51 g/msquared previously 44 g/msquared FLOW: Phase contrast images were obtained with the following results: Ascending aorta: Peak velocity is 142 cm/s, forward flow is 74 mL/beat with no significant reverse flow. Descending aorta: Peak velocity is 119 cm/s, forward flow is 56 mL/beat with no significant reverse flow. Superior vena cava: Peak velocity is 45 cm/s, forward flow is 27 mL/beat with no significant reverse flow. Main pulmonary artery: Peak velocity is 299 cm/s, forward flow is 106 mL/beat with reverse flow 20 mL/beat, regurgitant fraction 19%. Right pulmonary artery: Peak velocity is 283 cm/s, forward flow is 65 mL/beat with reverse flow 22 mL/beat, regurgitant fraction 34%. Left pulmonary artery: Peak velocity is 120 cm/s, forward flow is 31 mL/beat with reverse flow 4 mL/beat, regurgitant fraction 13%. RVOT peak velocity: 445 cm/s Procedure Note Josefa Osorio MD - 04/24/2025 MR CARDIAC FOR TETRALOGY OF FALLOT REPAIR CLINICAL HISTORY: The patient is a 22-year-old Male with truncusarteriosus status post complete repair. 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 A baselinecardiac MRI study was requested performed to assess cardiac anatomy, function, and evidence of myocardial delayed enhancement. COMPARISON: MR Cardiac 06/22/17 TECHNIQUE: Cardiac MRI was performed in the 3 Shirlene Siemens Skyra magnet utilizing a 32-channel phased-array cardiac coil. Sequences included: GRE localizers, Cine SSFP in the 4-, 3-, 2- chamber and short axis planes. Velocity-encoded phase contrast was performed through the ascending aorta, SVC, descending aorta, branch pulmonary arteries, and MPA. In-planeRVOT. 132 mg Ferumoxytol was infused slowly. Respiratory-navigated, EKG-gated,IR FLASH three-dimensional sagittal MRA of the chest. 3D reformats weregenerated on a separate workstation under direct physician supervision. 4D flow assessment performed. The patient was imaged with suspended breathing technique, yielding a technically adequate study. There is no study related complications FINDINGS: SITUS AND SEGMENTAL ANATOMY: {S,D,S} with normal segmental anatomy withsitus solitus of the thoracic and abdominal viscera. There is levocardia with atrioventricular and ventriculoarterial concordance. SYSTEMIC AND PULMONARY VEINS: Normal systemic and pulmonary venous return. There is a retroaortic left innominate vein, an anatomic variant. ATRIA: The right atrium is mildly dilated with normal left atrium with no evidence of atrial shunting. AV JUNCTION: The tricuspid valve is thin and mobile with traceinsufficiency. The mitral valve is thin and mobile without insufficiency. VENTRICLES: The right ventricle is normal in size with normal function. No right ventricular segmental wall motion abnormality is evident. The left ventricle is normal in size with low normal function. No left ventricular segmental wall motion abnormality is evident. The leftventricular mass is normal. There are no visible ventricular septal defects. There is diastolic septal flattening. OUTFLOW: There is no left ventricular outflow tract obstruction. Theaortic valve is normal in appearance and functions normally without stenosis.There is no significant aortic regurgitation. The aortic root is mild tomoderately dilated. The sinotubular junction measures normal. The right ventricle to pulmonary artery conduit is severely stenotic with a peak velocity of 445cm/s and diffusely small, measuring 16 x 15 mm. The distal conduit byvmfkim61 x 15 mm. There is mild pulmonary regurgitation with a regurgitant fractionof 15 to 19% based off of volumetry and phase contrast imaging respectively. GREAT VESSELS: The aorta and pulmonary artery are normally related. The aortic arch is right-sided and has a mirror image branching pattern. The ascending aorta, transverse arch and descending aorta measure normally. The aorta descendsto the right of the spine. The branch pulmonary arteries are diffusely mildly small bilaterally, witha discrete stenosis noted of the distal left pulmonary artery prior to thefirst branch. There is unbalance pulmonary blood flow with approximately 68% ofthe pulmonary blood flow to the right pulmonary artery and approximately 32%to the left pulmonary artery by phase contrast imaging. Aortic Root (mm): 39 x 39 x 37 previously 37 x [address] Junction (mm): 28 x 27 Ascending Aorta (mm): 27 x 24 Proximal transverse arch (mm): 25 x 24 Distal transverse arch (mm): 24 x 21 Isthmus (mm): 21 x 20 Proximal descending aorta (mm): 19 x 17 Descending aorta at diaphragm (mm): 18 x 16 Proximal conduit (mm): 16 x 15 previously 17 x 16 Distal conduit (mm): 22 x 15 previously 22 x 19 Proximal RPA (mm): 14 x 12 previously 14 x 11 Distal RPA (mm): 13 x 12 previously 14 x 13 Proximal LPA (mm): 15 x 13 previously 14 x 14 Distal LPA at level of stenosis (mm): 7 x 6 previously 8 x 7 FIBROSIS IMAGING: not performed (ferumoxytol study) MISCELLANEOUS: No other abnormal findings are identified. QUANTITATIVE VENTRICULAR VOLUME/FUNCTION DATA: Height: 168 cm. Weight: 105.8 kg. Body surface area: 2.14 msquared. Heart rate: 80 beats/min. RIGHT VENTRICLE: Ejection Fraction = 54% previously 56% End Diastolic Volume Index = 85 mL/msquared previously 86 mL/msquared End Systolic Volume Index= 39 ml/msquared previously 38 mL/msquared Stroke Volume = 98 mL previously 96mL LEFT VENTRICLE: Ejection Fraction = 54% previously 56% End Diastolic Volume Index = 73 mL/msquared previously 65 mL/msquared End Systolic Volume Index= 33 ml/msquared previously 29 mL/msquared Stroke Volume = 84 mL previously 72 mL Myocardial Mass Index = 51 g/msquared previously 44 g/msquared FLOW: Phase contrast images were obtained with the following results: Ascending aorta: Peak velocity is 142 cm/s, forward flow is 74 mL/beatwith no significant reverse flow. Descending aorta: Peak velocity is 119 cm/s, forward flow is 56 mL/beatwith no significant reverse flow. Superior vena cava: Peak velocity is 45 cm/s, forward flow is 27 mL/beatwith no significant reverse flow. Main pulmonary artery: Peak velocity is 299 cm/s, forward flow is 106mL/beat with reverse flow 20 mL/beat, regurgitant fraction 19%. Right pulmonary artery: Peak velocity is 283 cm/s, forward flow is 65mL/beat with reverse flow 22 mL/beat, regurgitant fraction 34%. Left pulmonary artery: Peak velocity is 120 cm/s, forward flow is 31mL/beat with reverse flow 4 mL/beat, regurgitant fraction 13%. RVOT peak velocity: 445 cm/s IMPRESSION 1. Truncus arteriosus, status post repair. 2. 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 There is mild conduit regurgitation with a regurgitant fractionof 15-19%. 3. The right ventricle to pulmonary artery conduit and proximal branch pulmonary arteries are diffusely mildly small. There is also a mild focal narrowing in the distal left pulmonary artery. 3. The aortic root is mild to moderately dilated, the remainder of theaorta measures normal. 4. Right aortic arch with mirror image branching. 5. There is no residual ventricular septal defect. 6. Normal right ventricular chamber size with normal systolic function. 7. Normal left ventricular chamber size with low normal systolicfunction. This study and results reported in conjunction with Dr. Heather Vidal, attending physician from [facility] and Dr. Sherice Boyer,advanced imaging fellow from [facility]. I, Josefa Osorio MD, have supervised the procedure and/or image review, and agree with the above interpretation and report. Authorizing ProviderResult TypeResult StatusClDecatur Morgan Hospital-Parkway [facility] ORDERABLESFinal Result from Last 3 Months Insurance Care Teams Team MemberRelationshipSpecialtyStart DateEnd Manoj Escoto [address] [place] [address] PCP - GeneralFamily Mhfzzpey73/15/17
[2025-06-28 20:39] VITALS: PULSE 87; O2SAT 99
== END 2025-06-28 20:40 | disposition home or self-care (01) ==
PROVIDERS: Emergency Provider Emergency Medicine
DX: J06.9 Acute upper respiratory infection, unspecified (principal)
CPT/HCPCS: 87804; 87811; 99283